=== PATIENT | female | born 1985 | race Caucasian/White ===

== ENCOUNTER 2016-09-14 09:06 | Outpatient (CLI) | payer OTHER | END 2016-09-14 20:14 | disposition home or self-care (01) | LOC: MLB 09:06 | PROVIDERS: ATTEND Family Medicine Geriatric Medicine | DX: R94.6 Abnormal results of thyroid function studies (principal) | CPT/HCPCS: 36415; 84443 ==

== ENCOUNTER 2016-12-21 07:41 | Day surgery (SDC) | payer OTHER ==
[2016-12-19 16:36] LABS: BASOPHILS # (AUTO) 0.2 K/uL (0.00-0.22); BASOPHILS % (AUTO) 2.5 % (0.0-2.0); EOSINOPHILS # (AUTO) 0.1 K/uL (0-0.4); EOSINOPHILS % (AUTO) 1.5 % (0.0-4.0); HEMATOCRIT 40.5 % (36-48); HEMOGLOBIN 13.1 g/dL (12.0-16.0); LYMPHOCYTES # (AUTO) 1.9 K/uL (2.5-16.5); LYMPHOCYTES % (AUTO) 27.4 % (20.5-51.1); MEAN CORPUSCULAR HEMOGLOBIN 29 pg (27-31); MEAN CORPUSCULAR HGB CONC 33 g/dL (33-37); MEAN CORPUSCULAR VOLUME 88 fL (80-94); MONOCYTES # (AUTO) 0.3 K/uL (0.8-1.0); MONOCYTES % (AUTO) 4.4 % (1.7-9.3); NEUTROPHILS # (AUTO) 4.3 K/uL (1.8-7.7); NEUTROPHILS % (AUTO) 64.2 % (42.2-75.2); PLATELET COUNT (AUTO) 289 K/uL (140-450); RED CELL DISTRIBUTION WIDTH 11.3 % (11.6-13.7); WHITE BLOOD COUNT (AUTO) 6.8 K/uL (4.8-10.8)
[2016-12-19 16:38] LABS: ALBUMIN 4.1 g/dL (3.4-5.0); ANION GAP 12.2 (8-16); CARBON DIOXIDE 30.7 mmol/L (21-32); CREATININE 0.7 mg/dL (0.6-1.3); POTASSIUM 3.9 mmol/L (3.5-5.1); TOTAL BILIRUBIN 0.2 mg/dL (0.0-1.0)
[~2016-12-21] VITALS: Ht 160 cm; Wt 60.3 kg
[2016-12-21] MEDS ORDERED: CLINDAMYCIN 600 MG in DEXTROSE 5% 50 ML IV SCH ×2 (09:00→12:00)
[2016-12-21] MEDS ORDERED: DESFLURANE 240 ML BTL INH ONE (09:20)
[2016-12-21] MEDS ORDERED: CLINDAMYCIN 600 MG/4 ML VIAL ONE (09:20)
[2016-12-21] MEDS ORDERED: PROPOFOL 200 MG/20 ML VIAL IV ONE (09:20)
[2016-12-21] MEDS ORDERED: MEPERIDINE 50 MG/ML SYR ONE ×2 (09:20→09:29)
[2016-12-21] MEDS ORDERED: MIDAZOLAM 2 MG/2 ML VIAL ONE (09:29)
[2016-12-21] MEDS ORDERED: fentaNYL 0.05 MG/ML VIAL ONE (09:29)
[2016-12-21] MEDS ORDERED: BUPIVACAINE-MPF 0.25% 30 ML VIAL INJ ONE (09:31)
[2016-12-21] MEDS ORDERED: LIDOCAINE 2% 100 MG/5 ML UJET TP ONE (09:32)
[2016-12-21] MEDS ORDERED: GELATIN SPONGE 100 1 SPG TP ONE (09:32)
[2016-12-21] MEDS ORDERED: LACTATED RINGERS 1,000 ML IV SCH (09:52)
[2016-12-21] MEDS ORDERED: diphenhydrAMINE 50 MG/ML VIAL IVP PRN (09:55)
[2016-12-21] MEDS ORDERED: HYDROmorphone 1 MG/ML AMP IVP PRN ×2 (09:55→11:10)
[2016-12-21] MEDS ORDERED: ONDANSETRON 4 MG/2 ML VIAL IVP PRN (09:55)
[2016-12-21] MEDS ORDERED: MEPERIDINE 25 MG/ML SYR IVP PRN (09:55)
[2016-12-21] MEDS ORDERED: MORPHINE SULFATE 4 MG/ML SYR IV PRN (11:10)
[2016-12-21] MEDS ORDERED: ONDANSETRON 4 MG/2 ML VIAL IV PRN (11:10)
[2016-12-21] MEDS ORDERED: HYDROcodone/APAP 5/325 MG 1 TAB TAB PO PRN (11:10)
[2016-12-21] MEDS ORDERED: ONDANSETRON 4 MG/2 ML VIAL IVP ONE (13:00)
== END 2016-12-21 13:35 | disposition home or self-care (01) ==
LOC: MDS 07:41 → MMU 07:41 → MDS 13:35
PROVIDERS: ATTEND Surgery
DX: K60.2 Anal fissure, unspecified (principal); K64.4 Residual hemorrhoidal skin tags; K21.9 Gastro-esophageal reflux disease without esophagitis; Z88.0 Allergy status to penicillin
CPT/HCPCS: 36415; 45330; 46257; 71010; 80053; 81025; 85025; J2175; J2250; J2405; J2704; J3010; J3490; J7060; J7120

== ENCOUNTER 2017-02-26 15:24 | Emergency (ER) | payer OTHER ==
[~2017-02-26] VITALS: Ht 162.6 cm; Wt 62.8 kg
[2017-02-26 15:46] VITALS: BP 104/60
--- NOTE | 2017-02-26 17:23 | NUR ---
Patient ambulated to [facility] to be evaluated as fast track by Dr. Fishman. RN evaluating patient.
--- NOTE | 2017-02-26 17:30 | NUR ---
31/F c/o left axilla abscess x2 weeks after waxing. Pt c/o 09/10 pain. No drainage noted. Pt is AOX4, ambulatory with steady gait. VSS.
[2017-02-26 17:48] VITALS: BP 98/47
--- NOTE | 2017-02-26 17:48 | NUR ---
Patient discharged with v/s stable. Written and verbal after care instructions given and explained. Patient alert, oriented and verbalized understanding of instructions. Ambulatory with steady gait. All questions addressed prior to discharge. ID band removed. Patient advised to follow up with PMD. Rx of Bactrim DS and Keflex 500mg given. Patient educated on indication of medication including possible reaction and side effects. Opportunity to ask questions provided and answered.
== END 2017-02-26 17:48 | disposition home or self-care (01) ==
LOC: MED 15:24
DX: L02.412 Cutaneous abscess of left axilla (principal); Z88.0 Allergy status to penicillin
CPT/HCPCS: 99283

== ENCOUNTER 2017-08-09 09:08 | Outpatient (CLI) | payer OTHER ==
[2017-08-09 10:26] LABS: APPEARANCE,URINE HAZY (CLEAR); BILIRUBIN,URINE NEGATIVE (NEGATIVE); BLOOD, URINE 3+ (NEGATIVE); LEUKOCYTE ESTERASE ,URINE TRACE (NEGATIVE); NITRITE, URINE NEGATIVE (NEGATIVE); UGLUCOSE NEGATIVE (NEGATIVE)
[2017-08-09 10:39] LABS: ALBUMIN 3.9 g/dL (3.4-5.0); ANION GAP 12.5 (8-16); CHOL/HDL RATIO 2.8 (1-4.5); CREATININE 0.7 mg/dL (0.6-1.3); FREE T4 (FREE THYROXINE) 0.87 ng/dL (0.76-1.46); POTASSIUM 4.5 mmol/L (3.5-5.1); THYROID STIMULATING HORMONE 3.34 uIU/mL (0.34-3.74); TOTAL BILIRUBIN 0.4 mg/dL (0.0-1.0)
[2017-08-09 10:40] LABS: COLOR,URINE STRAW (YELLOW)
[2017-08-09 10:56] LABS: RBC,URINE TOO NUMEROUS TO COUN /HPF (0-5)
[2017-08-09 10:57] LABS: WBC,URINE 0-5 (RARE) /HPF (0-5)
[2017-08-09 13:59] LABS: HEMATOCRIT 39.5 % (36-48); HEMOGLOBIN 13.2 g/dL (12.0-16.0); MEAN CORPUSCULAR HEMOGLOBIN 30 pg (27-31); MEAN CORPUSCULAR HGB CONC 33 g/dL (33-37); MEAN CORPUSCULAR VOLUME 89.4 fL (80-94); PLATELET COUNT (AUTO) 254 K/uL (140-450); RED BLOOD CELL COUNT(AUTO) 4.41 MIL/uL (4.20-5.40); RED CELL DISTRIBUTION WIDTH 12.9 % (11.6-13.7)
[2017-08-09 14:00] LABS: BASOPHILS % (AUTO) 0.3 % (0.0-2.0); EOSINOPHILS % (AUTO) 0.7 % (0.0-4.0); LYMPHOCYTES # (AUTO) 1.2 K/uL (2.5-16.5); LYMPHOCYTES % (AUTO) 20.3 % (20.5-51.1); MONOCYTES # (AUTO) 0.3 K/uL (0.8-1.0); MONOCYTES % (AUTO) 4.3 % (1.7-9.3); NEUTROPHILS # (AUTO) 4.5 K/uL (1.8-7.7); NEUTROPHILS % (AUTO) 74.4 % (42.2-75.2)
== END 2017-08-09 19:49 | disposition home or self-care (01) ==
LOC: MLB 09:08
PROVIDERS: ATTEND Family Medicine Geriatric Medicine
DX: Z13.228 Encounter for screening for other metabolic disorders (principal); Z13.21 Encounter for screening for nutritional disorder; Z13.1 Encounter for screening for diabetes mellitus; Z13.0 Encounter for screening for diseases of the blood and blood-forming organs and certain disorders involving the immune mechanism; Z13.220 Encounter for screening for lipoid disorders; K21.9 Gastro-esophageal reflux disease without esophagitis
CPT/HCPCS: 36415; 80053; 81001; 82306; 83036; 84439; 84443; 85025

== ENCOUNTER 2018-01-29 08:50 | Outpatient (CLI) | payer OTHER ==
[2018-01-29 18:18] LABS: BASOPHILS % (AUTO) 0.3 % (0.0-2.0); EOSINOPHILS # (AUTO) 0.1 K/uL (0-0.4); EOSINOPHILS % (AUTO) 0.8 % (0.0-4.0); HEMATOCRIT 39.3 % (36-48); HEMOGLOBIN 12.9 g/dL (12.0-16.0); LYMPHOCYTES # (AUTO) 5.1 K/uL (2.5-16.5); LYMPHOCYTES % (AUTO) 64.2 % (20.5-51.1); MEAN CORPUSCULAR HEMOGLOBIN 29 pg (27-31); MEAN CORPUSCULAR HGB CONC 33 g/dL (33-37); MEAN CORPUSCULAR VOLUME 88.7 fL (80-94); MONOCYTES # (AUTO) 0.6 K/uL (0.8-1.0); MONOCYTES % (AUTO) 7.4 % (1.7-9.3); NEUTROPHILS # (AUTO) 2.2 K/uL (1.8-7.7); NEUTROPHILS % (AUTO) 27.3 % (42.2-75.2); PLATELET COUNT (AUTO) 182 K/uL (140-450); RED BLOOD CELL COUNT(AUTO) 4.43 MIL/uL (4.20-5.40); RED CELL DISTRIBUTION WIDTH 12.5 % (11.6-13.7); WHITE BLOOD COUNT (AUTO) 7.9 K/uL (4.8-10.8)
== END 2018-01-29 19:39 | disposition home or self-care (01) ==
LOC: MLB 08:50
DX: E03.9 Hypothyroidism, unspecified (principal); N39.0 Urinary tract infection, site not specified; R68.83 Chills (without fever)
CPT/HCPCS: 36415; 84443; 84480; 84481; 85025; 87086

== ENCOUNTER 2018-11-08 10:00 | Outpatient (CLI) | payer OTHER ==
[2018-11-09 08:07] LABS: ESTRADIOL SERUM 93.4 pg/mL (.); FOLLICLE STIMULATING HORMONE 5.7 mIU/mL (.); PROLACTIN 10.3 ng/mL (4.8-23.3)
== END 2018-11-08 20:32 | disposition home or self-care (01) ==
LOC: MLB 10:00
DX: N93.9 Abnormal uterine and vaginal bleeding, unspecified (principal)
CPT/HCPCS: 36415; 82670; 83001; 84146; 84403; 84443; 84702

== ENCOUNTER 2019-04-01 11:22 | Emergency (ER) | payer OTHER ==
[~2019-04-01] VITALS: Ht 160 cm; Wt 56.7 kg
[2019-04-01 11:25] VITALS: BP 115/72
--- NOTE | 2019-04-01 11:34 | NUR ---
RECEIVED PT VIA EMS FOR ABDOMINAL PAIN AND AN EPISODE OF HYPERVENTILATION. PT RECEIVED 4MG ZOFRAN OTD PRE-HOSPITAL. ABD IS SOFT NON TENDER. NO DISTENTION NOTED. BOWEL SOUNDS ACTIVE X 4. DENIES PAIN UPON PALPATION, REPORTS RELIEF OF NAUSEA AFTER ZOFRAN. IN BED FOR MSE.
--- NOTE | 2019-04-01 12:30 | NUR ---
PT STILL REPORTING THAT PAIN IS TOLERABLE. EDUCATED PT THAT SHE CAN ASK FOR MEDICATIONS AT ANY TIME. NO NAUSEA/VOMITTING NOTED.
--- NOTE | 2019-04-01 13:16 | NUR ---
DR DAI RE-EVALUATING PT AT [facility].
--- NOTE | 2019-04-01 13:20 | NUR ---
Patient discharged with v/s stable. Written and verbal after care instructions given and explained. Patient verbalized understanding. Ambulatory with steady gait. All questions addressed prior to discharge. Advised to follow up with PMD.
[2019-04-01 13:21] VITALS: BP 124/86
== END 2019-04-01 13:20 | disposition home or self-care (01) ==
LOC: MED 11:22
DX: R10.32 Left lower quadrant pain (principal); R55 Syncope and collapse; E07.9 Disorder of thyroid, unspecified; Z88.0 Allergy status to penicillin
CPT/HCPCS: 76856; 81002; 81025; 93976; 99283; Q0092

== ENCOUNTER 2020-10-25 13:44 | Outpatient (CLI) | payer OTHER ==
[2020-10-27 11:04] LABS: VARICELLA IGG ANTIBODY 3317 Index (135 - 165)
== END 2020-10-25 19:11 | disposition home or self-care (01) ==
LOC: MLB 13:44
PROVIDERS: ATTEND Family Medicine
DX: Z13.9 Encounter for screening, unspecified (principal)
CPT/HCPCS: 36415; 86592; 86735; 86765; 86787

== ENCOUNTER 2020-12-19 15:29 | Outpatient (CLI) | payer OTHER ==
[2020-12-20 15:07] LABS: ESTRADIOL SERUM 43.1 pg/mL (.)
== END 2020-12-19 20:05 | disposition home or self-care (01) ==
LOC: MLB 15:29
PROVIDERS: ATTEND Family Medicine
DX: N92.6 Irregular menstruation, unspecified (principal)
CPT/HCPCS: 36415; 82670; 83001; 83516

== ENCOUNTER 2020-12-26 09:14 | Outpatient (CLI) | payer OTHER ==
[2020-12-27 09:06] LABS: FOLLICLE STIMULATING HORMONE 6.3 mIU/mL (.); LUTEINIZING HORMONE 17.4 mIU/mL (.); PROLACTIN 11.5 ng/mL (4.8-23.3)
== END 2020-12-26 21:20 | disposition home or self-care (01) ==
LOC: MLB 09:14
PROVIDERS: ATTEND Specialist
DX: N92.6 Irregular menstruation, unspecified (principal)
CPT/HCPCS: 36415; 82670; 83001; 83002; 83525; 84146; 84403; 84443

== ENCOUNTER 2021-12-13 16:52 | Outpatient (CLI) | payer OTHER ==
[2021-12-14 09:06] LABS: VARICELLA IGG ANTIBODY 2506 index (Immune >165)
[2021-12-14 15:07] LABS: HEPATITIS B SURFACE ANTIBODY Non Reactive (.)
== END 2021-12-13 19:59 | disposition home or self-care (01) ==
LOC: MLB 16:52
PROVIDERS: ATTEND Family Medicine
DX: Z13.9 Encounter for screening, unspecified (principal)
CPT/HCPCS: 36415; 86592; 86706; 86762; 86765; 86787

== ENCOUNTER 2021-12-30 09:00 | Outpatient (CLI) | payer OTHER ==
[2021-12-30 10:09] LABS: BASOPHILS % (AUTO) 0.2 % (0.0-2.0); EOSINOPHILS # (AUTO) 0.1 K/uL (0-0.4); EOSINOPHILS % (AUTO) 0.5 % (0.0-4.0); HEMATOCRIT 37.4 % (36-48); HEMOGLOBIN 12.7 g/dL (12.0-16.0); LYMPHOCYTES # (AUTO) 1.5 K/uL (2.5-16.5); LYMPHOCYTES % (AUTO) 14.6 % (20.5-51.1); MEAN CORPUSCULAR HEMOGLOBIN 30 pg (27-31); MEAN CORPUSCULAR HGB CONC 34 g/dL (33-37); MONOCYTES # (AUTO) 0.5 K/uL (0.8-1.0); MONOCYTES % (AUTO) 5.1 % (1.7-9.3); NEUTROPHILS # (AUTO) 8.3 K/uL (1.8-7.7); NEUTROPHILS % (AUTO) 79.6 % (42.2-75.2); PLATELET COUNT (AUTO) 282 K/uL (140-450); RED CELL DISTRIBUTION WIDTH 12.8 % (11.6-13.7); WHITE BLOOD COUNT (AUTO) 10.5 K/uL (4.8-10.8)
[2021-12-31 09:06] LABS: THYROID PEROXIDASE (TPO) AB <8 IU/mL (0-34); TRIIODOTHYRONINE FREE 2.8 pg/mL (2.0-4.4)
== END 2021-12-30 21:06 | disposition home or self-care (01) ==
LOC: MLB 09:00
PROVIDERS: ATTEND Specialist
DX: Z34.90 Encounter for supervision of normal pregnancy, unspecified, unspecified trimester (principal)
CPT/HCPCS: 36415; 82670; 84144; 84481; 85025; 86376; 86592; 86762; 86901